=== PATIENT | female | born 1990 | race Asian ===

== ENCOUNTER → 2017-12-24 | Outpatient (CLI) | payer OTHER | LOC: M RAD 08:19 | DX: R10.9 Unspecified abdominal pain (principal); R31.9 Hematuria, unspecified | CPT/HCPCS: 74176 ==

== ENCOUNTER → 2018-01-14 | Outpatient (REF) | payer OTHER ==
[2018-01-14 17:53] LABS: APPEARANCE, URINE CLEAR (CLEAR); BACTERIA, URINE AUTO NEGATIVE (NEGATIVE); BILIRUBIN, URINE AUTO NEGATIVE (NEGATIVE); BLOOD, URINE BLOOD 1+ (NEGATIVE); COLOR, URINE STRAW (YELLOW); GLUCOSE, URINE (UA) AUTO NEGATIVE (NEGATIVE); KETONE, URINE AUTO NEGATIVE (NEGATIVE); LEUKOCYTE ESTERASE, URINE AUTO NEGATIVE (NEGATIVE); MUCUS, URINE SMALL (NEGATIVE); NITRITE, URINE AUTO NEGATIVE (NEGATIVE); PROTEIN, URINE AUTO NEGATIVE (NEGATIVE); RBC, URINE AUTO 4 /HPF (0-3); SPECIFIC GRAVITY URINE AUTO 1.009 (1.002-1.035); SQUAMOUS EPITHELIAL CELL UR AU 0 /HPF (0-6); UROBILINOGEN, URINE AUTO 0.2 mg/dL (0.0-2.0); WBC, URINE AUTO 0 /HPF (0-3)
== END ==
LOC: M SMT 16:59
DX: R31.0 Gross hematuria (principal)

== ENCOUNTER 2018-01-20 08:00 | Day surgery (SDC) | payer OTHER ==
[~2018-01-20 08:00] MED LIST: LIDOCAINE 1% MDV 20ML VIAL SQ; LIDOCAINE 2% INJ 100 MG/5 ML SDV (FOR ANES.) As Ordered; MIDAZOLAM INJ 2 MG/2 ML VIAL (J2250) As Ordered; PROPOFOL 500 MG/50 ML VIAL As Ordered; fentaNYL 100 MCG/2 ML INJECTION (J3010) As Ordered
[2018-01-20] MEDS ORDERED: LR 1,000 ML IV ×3 (08:30→11:45)
[2018-01-20 09:28] LABS: CONTROL LINE UCG INT CTR LINE PRESENT; URINE PREG TEST NEGATIVE (NEGATIVE)
[2018-01-20] MEDS: CONRAY-60 60% 50ML VIAL (Q9961) As Ordered (10:38)
[2018-01-20] MEDS ORDERED: oxyCODONE 5MG TAB PO (11:45)
[2018-01-20] MEDS ORDERED: ONDANSETRON 4MG/2ML VIAL (J2405) IV (11:45)
[2018-01-20] MEDS: PERCOCET 5MG/325MG TAB PO (11:49)
[2018-01-20] MEDS ORDERED: ACETAMINOPHEN 500 MG TAB PO (12:00)
[2018-01-22] MEDS ORDERED: ACETAMINOPHEN 500 MG TAB PO (12:00)
== END 2018-01-20 13:23 | disposition home or self-care (01) ==
LOC: M SDC 13:23
DX: N20.0 Calculus of kidney (principal); R31.0 Gross hematuria; R76.11 Nonspecific reaction to tuberculin skin test without active tuberculosis
CPT/HCPCS: 50590

== ENCOUNTER → 2018-01-21 | Outpatient (REF) | payer OTHER ==
[2018-01-31 14:16] LABS: CA Oxalate Dihy 10 % (.); COMMENT Note: (.); Ca Ox Monohydrate 75 % (.)
== END ==
LOC: M SMT 17:08
DX: N20.0 Calculus of kidney (principal)

== ENCOUNTER → 2018-02-07 | Outpatient (CLI) | payer OTHER ==
[2018-02-07 13:13] LABS: APPEARANCE, URINE CLEAR (CLEAR); BACTERIA, URINE AUTO 1+ (NEGATIVE); BILIRUBIN, URINE AUTO NEGATIVE (NEGATIVE); BLOOD, URINE BLOOD NEGATIVE (NEGATIVE); CALCIUM OXALATE CRYSTALS SMALL; COLOR, URINE YELLOW (YELLOW); GLUCOSE, URINE (UA) AUTO NEGATIVE (NEGATIVE); KETONE, URINE AUTO NEGATIVE (NEGATIVE); LEUKOCYTE ESTERASE, URINE AUTO NEGATIVE (NEGATIVE); MUCUS, URINE SMALL (NEGATIVE); NITRITE, URINE AUTO NEGATIVE (NEGATIVE); PROTEIN, URINE AUTO NEGATIVE (NEGATIVE); RBC, URINE AUTO 1 /HPF (0-3); SPECIFIC GRAVITY URINE AUTO 1.023 (1.002-1.035); SQUAMOUS EPITHELIAL CELL UR AU 2 /HPF (0-6); UROBILINOGEN, URINE AUTO 0.2 mg/dL (0.0-2.0); WBC, URINE AUTO 1 /HPF (0-3)
== END ==
LOC: M SMT 09:11
DX: N20.0 Calculus of kidney (principal)
CPT/HCPCS: 81001

== ENCOUNTER → 2018-03-22 | Outpatient (REF) | payer OTHER ==
[~2018-03-22] MED LIST changes: +CIPR-249 PO; +ISON300T4 PO; -LIDOCAINE 1% MDV 20ML VIAL SQ; -LIDOCAINE 2% INJ 100 MG/5 ML SDV (FOR ANES.) As Ordered; -MIDAZOLAM INJ 2 MG/2 ML VIAL (J2250) As Ordered; -PROPOFOL 500 MG/50 ML VIAL As Ordered; +VITA100T96 PO; -fentaNYL 100 MCG/2 ML INJECTION (J3010) As Ordered
== END ==
LOC: M LABSMT 15:04
PROVIDERS: ATTEND Urology Pediatric Urology
DX: N20.0 Calculus of kidney (principal)

== ENCOUNTER → 2018-03-23 | Outpatient (CLI) | payer OTHER ==
[2018-03-23 18:51] LABS: THYROID STIMULATING HORMONE 1.35 uIU/ML (0.358-3.740); THYROXINE (T4) 9.8 UG/DL (4.5-12.0)
[2018-03-25 10:16] LABS: SSA SJOGRENS A <0.2 AI (0.0-0.9); SSB SJOGRENS B <0.2 AI (0.0-0.9)
== END ==
LOC: M LAB 16:56
PROVIDERS: ATTEND Ophthalmology
DX: Z13.29 Encounter for screening for other suspected endocrine disorder (principal)

== ENCOUNTER → 2018-03-31 | Outpatient (CLI) | payer OTHER ==
[~2018-03-31] MED LIST changes: +ISOVUE-370 76% 100ML VIAL (Q9967) As Ordered ONE
--- NOTE | 2018-03-31 10:07 | REP ---
CT abdomen and pelvis without and with IV contrast: CT urogram. History: Kidney stones. Comparison CT study December 24, 2017. CT contrast dose: 100 mL of intravenous Isovue [address] findings: Preliminary digital compounding scaler radiograph demonstrates a normal bowel gas pattern. The lung bases are clear. The liver and the spleen are normal in size and homogeneous in texture. There are two accessory splenules. No pancreatic abnormality is seen. The gallbladder is unremarkable by CT criteria. No adrenal lesion is seen on either side. There is no intrarenal calculus visible today. No hydronephrosis is seen. The kidneys enhance symmetrically. No mass or cyst is observed. The calculus seen in the left kidney on December 24, 2017 is not apparent. The urinary bladder is unremarkable. Uterus is tipped to the left but unremarkable. No ovarian abnormality is seen. Small and large intestinal bowel loops are normal in the abdomen and pelvis. Normal appendix is seen. No ureteral calculus is observed. Impression: No urinary tract abnormality seen. The calculus observed in the left kidney on December 24, 2017 is no longer apparent. Electronically Signed by Neil Jimenez MD 03/31/2018 06:01 P
== END ==
LOC: M RAD 08:04
PROVIDERS: ATTEND Urology Pediatric Urology
DX: Z87.442 Personal history of urinary calculi (principal)
CPT/HCPCS: 74178; Q9967

== ENCOUNTER → 2019-03-30 | Outpatient (CLI) | payer OTHER ==
[~2019-03-30] MED LIST changes: +ISON300T18 PO; -ISON300T4 PO; -ISOVUE-370 76% 100ML VIAL (Q9967) As Ordered ONE; +VITA100T77 PO; -VITA100T96 PO
--- NOTE | 2019-03-30 17:29 | REP ---
Focused right breast sonography: History: Subareolar lump and tenderness with erythema right breast. The patient reports a tender lump in this location for 1 month. Findings: Focused right breast scanning is performed. At 6 o'clock in the area of the palpable abnormality, there is a 0.8 x 0.8 x 0.4 cm hypoechoic area just beneath the dermis at the areolar border. This has its long axis parallel to the skin and there is enhanced through transmission and sharply circumscribed margins. 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 No observable Doppler blood flow. This appears to be adjacent normal breast tissue. Heterogeneous fibroglandular background echotexture is seen. Impression: Probably benign BIRADS category 3 right breast imaging findings. Clinical follow-up is advised. Repeat ultrasound evaluation in 6 months is recommended. Electronically Signed by Neil Jimenez MD 03/31/2019 08:10 A
== END ==
LOC: M RAD 16:24
PROVIDERS: ATTEND Nurse Practitioner Primary Care
DX: N63.41 Unspecified lump in right breast, subareolar (principal)

== ENCOUNTER 2019-06-24 02:43 | Emergency (ER) | payer OTHER ==
[~2019-06-24] VITALS: Ht 157.5 cm; Wt 53.8 kg
[2019-06-24 02:44] VITALS: BP 134/78
[2019-06-24] MEDS ORDERED: BACTRIM 160MG/800MG DS TAB PO ONE (03:00)
[2019-06-24] MEDS ORDERED: PHENAZOPYRIDINE 100 MG TAB PO ONE (03:00)
[2019-06-24] MEDS ORDERED: PYRI1TAB5 PO (03:05)
[2019-06-24] MEDS ORDERED: BACT800T5 PO (03:05)
[2019-06-24 03:11] LABS: APPEARANCE, URINE CLOUDY (CLEAR); BACTERIA, URINE AUTO 1+ (NEGATIVE); BILIRUBIN, URINE AUTO NEGATIVE (NEGATIVE); BLOOD, URINE BLOOD 3+ (NEGATIVE); COLOR, URINE YELLOW (YELLOW); GLUCOSE, URINE (UA) AUTO NEGATIVE (NEGATIVE); KETONE, URINE AUTO NEGATIVE (NEGATIVE); LEUKOCYTE ESTERASE, URINE AUTO 3+ (NEGATIVE); NITRITE, URINE AUTO NEGATIVE (NEGATIVE); PROTEIN, URINE AUTO NEGATIVE (NEGATIVE); RBC, URINE AUTO TNTC /HPF (0-3); SQUAMOUS EPITHELIAL CELL UR AU 1 /HPF (0-6); UROBILINOGEN, URINE AUTO 0.2 mg/dL (0.0-2.0); WBC, URINE AUTO TNTC /HPF (0-3)
== END 2019-06-24 03:23 | disposition home or self-care (01) ==
LOC: M ED 02:43
DX: N30.90 Cystitis, unspecified without hematuria (principal); Z87.442 Personal history of urinary calculi

== ENCOUNTER → 2020-01-29 | Outpatient (CLI) | payer OTHER ==
[~2020-01-29] MED LIST changes: +BACT800T5 PO; +PYRI1TAB5 PO
--- NOTE | 2020-01-29 18:07 | REP ---
INDICATION: N63.10 RIGHT BREAST MASS/6 MO F/U. COMPARISON: Ultrasound 03/30/2019. TECHNIQUE: Real-time sonographic evaluation of right breast performed. FINDINGS: No cystic or solid nodule is seen in the right retroareolar region. The previously noted hypoechoic oval nodule in a subcutaneous location at the areolar border is not seen on today's exam. It appears to have resolved. IMPRESSION: BIRADS/ACR category negative right breast ultrasound. No right retroareolar nodule observed on today's exam. The previously noted hypoechoic nodule at the right retroareolar border appears to have resolved. RECOMMENDATION: Clinical correlation and follow-up. <Electronically signed by Reyes Gomez > 01/29/20 [id number]
== END ==
LOC: M WHC 13:41
PROVIDERS: ATTEND Surgery
DX: R92.8 Other abnormal and inconclusive findings on diagnostic imaging of breast (principal)

== ENCOUNTER → 2020-02-01 | Outpatient (CLI) | payer OTHER ==
--- NOTE | 2020-02-01 10:41 | REPVR ---
PROCEDURE INFORMATION: Exam: CT Temporal Bones Without Contrast. Exam date and time: 02/01/2020 10:18 AM Age: 29 years old Clinical indication: Pain; Other: Left otalgia TECHNIQUE: Imaging protocol: Computed tomography images of the temporal bones without contrast. Radiation optimization: All CT scans at this facility use at least one of these dose optimization techniques: automated exposure control; mA and/or kV adjustment per patient size (includes targeted exams where dose is matched to clinical indication); or iterative reconstruction. COMPARISON: No relevant prior studies available. FINDINGS: Right inner ear: Normal. Right ossicles and middle ear: Normal. The middle ear ossicles are intact. Right external auditory canal: Normal. Right facial nerve canal: Normal. Right jugular foramen: No jugular dehiscence. Right carotid canal: No aberrent carotid canal. Right mastoid air cells: Normal. No mastoid effusions. Left inner ear: Normal. Left ossicles and middle ear: Normal. The middle ear ossicles are intact. Left external auditory canal: Normal. Left facial nerve canal: Normal. Left jugular foramen: No jugular dehiscence. Left carotid canal: No aberrent carotid canal. Left mastoid air cells: Normal. No mastoid effusions. Soft tissues: Unremarkable. IMPRESSION: No acute findings. Electronically signed by: Latosha Vaca On 02/01/2020 10:41:41 AM
== END ==
LOC: M RAD 10:14
PROVIDERS: ATTEND Physician Assistant Medical
DX: H92.02 Otalgia, left ear (principal)